=== PATIENT | female | born 1930 | race Caucasian/White ===

== ENCOUNTER 2017-09-11 13:29 | Inpatient (IN) | payer MEDICARE, SELFPAY ==
[~2017-09-11] VITALS: Ht 154.9 cm; Wt 78.3 kg
[~2017-09-11 13:29] MED LIST: ASPI81CH PO; ATORVASTATIN CA40 MG PO; Bactrim Ds Tab1 EACH PO; CEPH500 PO; Diovan Hct 80-1 EACH PO; FLUO10 PO; FLUSAL2505 INH; Flonase 0.05% N16 GM; LISHYD1012 PO; METO25 PO; NEBI5 PO; OMEP20ER PO; OMEP40CA12 PO; OMEPRAZOLE DR 40 MG; OMEPRAZOLE MAGN20 MG PO; OXYACE5T PO; Percocet 5-3251 EACH PO; TIOT18 INH; UBID10 PO; Zofran Odt4 MG SL
[2017-09-11 14:08] LABS: BASOPHILS ABSOLUTE AUTO 0.02 K/mm3 (0.00-0.23); BASOPHILS PERCENT AUTO 0 % (0-2); EOSINOPHILS ABSOLUTE AUTO 0.13 K/mm3 (0.00-0.68); EOSINOPHILS PERCENT AUTO 1 % (0-6); Hematocrit 39.7 % (33.0-51.0); Hemoglobin 13.7 g/dL (11.5-16.0); IMMATURE GRAN ABSOLUTE AUTO 0.03 K/mm3 (0.00-0.10); IMMATURE GRAN PERCENT AUTO 0 % (0-1); LYMPHOCYTES ABSOLUTE AUTO 1.11 K/mm3 (0.84-5.20); LYMPHOCYTES PERCENT AUTO 12 % (21-46); MONOCYTES ABSOLUTE AUTO 0.94 K/mm3 (0.16-1.47); MONOCYTES PERCENT AUTO 11 % (4-13); Mean Corpuscular HGB 31.5 pg (26.0-34.0); Mean Corpuscular HGB Conc 34.5 g/dL (31.5-36.5); Mean Corpuscular Volume 91 fL (80-100); Mean Platelet Volume 10.2 fL (9.1-12.4); NEUTROPHILS ABSOLUTE AUTO 6.76 K/mm3 (1.96-9.15); NEUTROPHILS PERCENT AUTO 75 % (41-73); Platelet Count 201 K/mm3 (150-400); RDW Coefficient Variation 14.9 % (11.7-14.2); RDW Standard Deviation 49.8 fL (35.1-46.3); Red Blood Cell Count 4.35 M/mm3 (3.80-5.20); White Blood Cell Count 8.99 K/mm3 (4.00-11.30)
[2017-09-11] MEDS ORDERED: Diovan Hct 80-1 EACH PO (14:08)
[2017-09-11] MEDS ORDERED: FLUO10 PO (14:08)
[2017-09-11] MEDS ORDERED: VITAMIN B-121000 MCG PO (14:16)
[2017-09-11] MEDS ORDERED: ERGO400 PO (14:17)
[2017-09-11] MEDS ORDERED: FLONASE ALLERG9.9 ML (14:20)
[2017-09-11 14:30] LABS: Albumin, Blood 3.6 g/dL (3.4-5.0); Albumin/Globulin Ratio 0.9 (0.8-1.8); Alk Phos 616 U/L (50-136); Anion Gap 8 mmol/L (6-16); Bilirubin, Total 5.2 mg/dL (0.1-1.0); Blood Urea Nitrogen 16 mg/dL (8-24); Bun/Creatinine Ratio 17.9 (12.0-20.0); CO2, Blood 29 mmol/L (21-32); Chloride, Blood 98 mmol/L (98-108); Globulin, Blood 4.1 g/dL (2.2-4.0); Glomerular Filtration Rate >60 (60-); Glucose, Blood 141 mg/dL (70-99); Potassium, Blood 3.7 mmol/L (3.5-5.5); Sodium, Blood 135 mmol/L (136-145); Total Protein, Blood 7.7 g/dL (6.4-8.2)
[2017-09-11 14:52] LABS: Troponin I <0.015 ng/mL (0.000-0.040)
[2017-09-11 14:58] LABS: Alanine Aminotransfer (ALT/SGP 1406 U/L (12-78); Aspartate Aminotrans (AST/SGOT 1374 U/L (12-37)
[2017-09-11 16:38] LABS: International Normalized Ratio 0.98; Prothrombin Time Results 10.2 Sec (9.7-11.5)
[2017-09-12 06:55] LABS: International Normalized Ratio 1.2; Prothrombin Time Results 12.6 Sec (9.7-11.5)
[2017-09-12 07:35] LABS: Albumin, Blood 2.8 g/dL (3.4-5.0); Albumin/Globulin Ratio 0.8 (0.8-1.8); Bilirubin, Total 7.9 mg/dL (0.1-1.0); Bun/Creatinine Ratio 11.1 (12.0-20.0); Creatinine, Blood 2.07 mg/dL (0.40-1.00); Globulin, Blood 3.5 g/dL (2.2-4.0); Potassium, Blood 3.6 mmol/L (3.5-5.5); Total Protein, Blood 6.3 g/dL (6.4-8.2)
[2017-09-12 08:54] LABS: Hematocrit 35.4 % (33.0-51.0); Hemoglobin 11.7 g/dL (11.5-16.0); Mean Corpuscular HGB 31.6 pg (26.0-34.0); Mean Corpuscular HGB Conc 33.1 g/dL (31.5-36.5); Mean Platelet Volume 10.9 fL (9.1-12.4); Platelet Count 159 K/mm3 (150-400); RDW Coefficient Variation 15.6 % (11.7-14.2); RDW Standard Deviation 53.4 fL (35.1-46.3); White Blood Cell Count 24.43 K/mm3 (4.00-11.30)
[2017-09-12 09:01] LABS: Mean Corpuscular Volume 96 fL (80-100)
[2017-09-14 19:12] LABS: HCV Non Reactive (NR)
[2018-08-14] MEDS ORDERED: VALSARTAN-HCTZ1 EACH PO (15:09)
[2018-08-14] MEDS ORDERED: ATOR40TA PO (15:09)
[2018-08-14] MEDS ORDERED: Fluoxetine HCl10 M1 PO (15:11)
[2018-08-14] MEDS ORDERED: MIRALAX17 GM PO (15:12)
[2018-08-14] MEDS ORDERED: LEVO-T25 MCG PO (15:12)
[2018-08-14] MEDS ORDERED: VOLTAREN100 GM (15:12)
[2018-08-14] MEDS ORDERED: ERGO400 PO (15:13)
[2018-08-14] MEDS ORDERED: HYDR1TAB94 PO (15:13)
[2018-08-14] MEDS ORDERED: LEVFLO500 PO (16:36)
[2018-08-14] MEDS ORDERED: Pyridium100 MG PO (16:36)
== END 2017-09-12 15:07 | disposition short-term general hospital (02) | DRG 393 ==
LOC: ER 13:29 → ERHOLD 16:11 → MEDS 20:26
PROVIDERS: Emergency Medicine; Family Medicine; Internal Medicine
DX: K91.86 Retained cholelithiasis following cholecystectomy (principal); K72.00 Acute and subacute hepatic failure without coma; A41.50 Gram-negative sepsis, unspecified; R65.21 Severe sepsis with septic shock; G93.41 Metabolic encephalopathy; K82.8 Other specified diseases of gallbladder; K21.9 Gastro-esophageal reflux disease without esophagitis; K22.8 Other specified diseases of esophagus; R11.2 Nausea with vomiting, unspecified; T40.2X5A Adverse effect of other opioids, initial encounter; F41.9 Anxiety disorder, unspecified; F32.9 Major depressive disorder, single episode, unspecified; E78.5 Hyperlipidemia, unspecified; E89.2 Postprocedural hypoparathyroidism; Z95.2 Presence of prosthetic heart valve; Y83.6 Removal of other organ (partial) (total) as the cause of abnormal reaction of the patient, or of later complication, without mention of misadventure at the time of the procedure; Z86.14 Personal history of Methicillin resistant Staphylococcus aureus infection; Z87.440 Personal history of urinary (tract) infections; Z87.891 Personal history of nicotine dependence; I12.9 Hypertensive chronic kidney disease with stage 1 through stage 4 chronic kidney disease, or unspecified chronic kidney disease; N18.1 Chronic kidney disease, stage 1
CPT/HCPCS: 36415; 71045; 74181; 74220; 76705; 80053; 80074; 82105; 83605; 83690; 83880; 84484; 85025; 85027; 85610; 85730; 87040; 87077; 87185; 93005; 93010; 96361; 96374; 96375; 99285; C9113; J0696; J1170; J1650; J1885; J2405; J3010; J3370; J7030; J7050; J7120; Q2038

== ENCOUNTER 2020-02-16 14:29 | Inpatient (IN) | payer MEDICARE ==
[~2020-02-16] VITALS: Ht 160 cm; Wt 76.2 kg
[~2020-02-16 14:29] MED LIST changes: +ATOR40TA PO; +DIOVAN HCT 80-1 EACH PO; +ERGO400 PO; +FLONASE ALLERG9.9 ML; +Fluoxetine HCl10 M1 PO; +HYDR1TAB94 PO; +LEVFLO500 PO; +LEVO-T25 MCG PO; +MIRALAX17 GM PO; +Pyridium100 MG PO; +VALSARTAN-HCTZ1 EACH PO; +VITAMIN B-121000 MCG PO; +VOLTAREN100 GM; +Vitamin D2000 UNIT PO
[2020-02-16 15:23] LABS: BASOPHILS ABSOLUTE AUTO 0.04 K/mm3 (0.00-0.23); BASOPHILS PERCENT AUTO 0 % (0-2); EOSINOPHILS PERCENT AUTO 1 % (0-6); Hematocrit 37.8 % (33.0-51.0); Hemoglobin 12.1 g/dL (11.5-16.0); IMMATURE GRAN ABSOLUTE AUTO 0.06 K/mm3 (0.00-0.10); IMMATURE GRAN PERCENT AUTO 0 % (0-1); LYMPHOCYTES ABSOLUTE AUTO 2.55 K/mm3 (0.84-5.20); LYMPHOCYTES PERCENT AUTO 15 % (21-46); MONOCYTES ABSOLUTE AUTO 1.56 K/mm3 (0.16-1.47); MONOCYTES PERCENT AUTO 9 % (4-13); Mean Corpuscular HGB 30.3 pg (26.0-34.0); Mean Corpuscular Volume 95 fL (80-100); Mean Platelet Volume 10.5 fL (9.1-12.4); NEUTROPHILS ABSOLUTE AUTO 12.57 K/mm3 (1.96-9.15); NEUTROPHILS PERCENT AUTO 74 % (41-73); Platelet Count 249 K/mm3 (150-400); RDW Coefficient Variation 14.3 % (11.7-14.2); RDW Standard Deviation 49.3 fL (35.1-46.3); White Blood Cell Count 16.98 K/mm3 (4.00-11.30)
[2020-02-16 15:36] LABS: Alanine Aminotransfer (ALT/SGP 20 U/L (12-78); Albumin, Blood 3.5 g/dL (3.4-5.0); Albumin/Globulin Ratio 0.9 (0.8-1.8); Alk Phos 89 U/L (50-136); Anion Gap 4 mmol/L (6-16); Aspartate Aminotrans (AST/SGOT 19 U/L (12-37); Bilirubin, Total 0.5 mg/dL (0.1-1.0); Blood Urea Nitrogen 32 mg/dL (8-24); Bun/Creatinine Ratio 21.3 (12.0-20.0); CO2, Blood 33 mmol/L (21-32); Calcium, Blood 9.2 mg/dL (8.5-10.1); Chloride, Blood 103 mmol/L (98-108); Globulin, Blood 3.9 g/dL (2.2-4.0); Glomerular Filtration Rate 35 (60-); Glucose, Blood 113 mg/dL (70-99); Potassium, Blood 4.3 mmol/L (3.5-5.5); Sodium, Blood 140 mmol/L (136-145); Total Protein, Blood 7.4 g/dL (6.4-8.2); Troponin I <0.015 ng/mL (0.000-0.040)
[2020-02-16 19:07] LABS: Cholesterol 159 mg/dL (50-200); Triglycerides 244 mg/dL (30-160)
--- NOTE | 2020-02-16 19:31 | NUR ---
TRANSITION OF CARE RECIEVED REPORT FROM [facility], ED @ 1916. ARRIVED TO MEDICAL FLOOR @ 1931. TRANSFER ASSISTANCE NEEDED FROM GURNEY TO BED. ORIENTED TO ROOM AND CALL SYSTEM. BED IN LOWEST POSITION; ALARM ON. CALL LIGHT AND BELONGINGS WITHIN REACH. WCTM.
[2020-02-16] MEDS ORDERED: FLONASE ALLERG9.9 M2 (20:06)
[2020-02-16] MEDS ORDERED: Norco 5-325 Ta1 EACH PO (20:07)
--- NOTE | 2020-02-17 04:01 | NUR ---
SHIFT SUMMARY A/O, ABLE TO MAKE NEEDS KNOWN. [place]. COOPERATIVE WITH CARE. CALLS AND ANSWERS QUESTIONS APPROPRIATELY. C/O PAIN/DISCOMFORT RATED 8-9/10 TO EPIGASTRIC/R SIDE ABDOMEN; MEDICATED PER EMAR. NOTED ADEQUATE RELIEF AFTER EACH ADMINISTRATION. PLACED ON 2L VIA NC IN ED R/T LOW SATURATIONS; O2 SATURATIONS HAVE BEEN >90% WITH EQUAL RISE/FALL. STATES AT HOME HAS HAD A COUGH OCCASIONALLY AND REPORTS HAVING SOB PERIODICALLY. LS CTA. RECIEVED IV FLUIDS PER EMAR; CONTINUES TO RUN LR @ 100 ML/HR WITHOUT COMPLICATIONS. REPORTED WEAKNESS WHEN TX TO BSC. HOWEVER, NO OTHER ACUTE CHANGES OVERNIGHT. APPEARED TO REST OFF/ON. VSS/AFEBRILE. BED REMAINED IN LOWEST POSITION; ALARM ON. CALL LIGHT AND BELONGINGS WITHIN REACH. WCTM. REPORT TO ONCOMING RN.
[2020-02-17 04:58] LABS: BASOPHILS ABSOLUTE AUTO 0.02 K/mm3 (0.00-0.23); BASOPHILS PERCENT AUTO 0 % (0-2); EOSINOPHILS ABSOLUTE AUTO 0.21 K/mm3 (0.00-0.68); EOSINOPHILS PERCENT AUTO 2 % (0-6); Hematocrit 34.6 % (33.0-51.0); Hemoglobin 10.9 g/dL (11.5-16.0); IMMATURE GRAN ABSOLUTE AUTO 0.02 K/mm3 (0.00-0.10); IMMATURE GRAN PERCENT AUTO 0 % (0-1); LYMPHOCYTES ABSOLUTE AUTO 2.18 K/mm3 (0.84-5.20); LYMPHOCYTES PERCENT AUTO 22 % (21-46); MONOCYTES ABSOLUTE AUTO 0.99 K/mm3 (0.16-1.47); MONOCYTES PERCENT AUTO 10 % (4-13); Mean Corpuscular HGB 30.4 pg (26.0-34.0); Mean Corpuscular HGB Conc 31.5 g/dL (31.5-36.5); Mean Corpuscular Volume 96 fL (80-100); Mean Platelet Volume 9.9 fL (9.1-12.4); NEUTROPHILS ABSOLUTE AUTO 6.34 K/mm3 (1.96-9.15); NEUTROPHILS PERCENT AUTO 65 % (41-73); Platelet Count 173 K/mm3 (150-400); RDW Coefficient Variation 14.8 % (11.7-14.2); RDW Standard Deviation 51.9 fL (35.1-46.3); Red Blood Cell Count 3.59 M/mm3 (3.80-5.20); White Blood Cell Count 9.76 K/mm3 (4.00-11.30)
[2020-02-17 05:13] LABS: Source, Urine Catheter
[2020-02-17 05:17] LABS: Bun/Creatinine Ratio 24.8 (12.0-20.0); Calcium, Blood 8.6 mg/dL (8.5-10.1); Creatinine, Blood 1.25 mg/dL (0.40-1.00)
[2020-02-17 05:21] LABS: Appearance, Urine Hazy (Clear); Bilirubin, Urine Neg (Neg); Blood, Urine 2+ (Neg); Color, Urine Yellow (P-Yellow); Glucose Qualitative, Urine Neg (Neg); Ketones, Urine Neg (Neg); Leukocyte Esterase, Urine 3+ (Neg); Nitrite, Urine Neg (Neg); Protein, Urine 1+ (Neg); Urobilinogen, Urine NORM (Normal)
[2020-02-17 05:28] LABS: Bacteria Mod /hpf; Red Blood Cells, Urine 0-2 /hpf (0-2); Squamous Epithelial Cells Rare /hpf (Few); White Blood Cells, Urine TNTC /hpf (0-5)
--- NOTE | 2020-02-17 17:48 | NUR ---
SHIFT SUMMARY PATIENT IS PLEASANT, ALERT AND ORIENTED. PATIENT DID STRUGGLE WITH FLUIDS TODAY. ASKED FOR A SPEECH THERAPY EVAL.
--- NOTE | 2020-02-18 05:56 | NUR ---
SHIFT SUMMARY PT IS AN 89 Y/O FEMALE, ADMITTED FOR PANCREATITIS. SHE IS A&O X 2, 1-2PA TO [facility]. PT WAS MEDICATED TWICE DURING THE NIGHT FOR LUQ PAIN WITH PRN IV DILAUDID. NO COMPLAINTS OF NAUSEA OR SOB. VITAL SIGNS STABLE. PT IS RECEIVING CONTINUOUS LR @ 100 ML/HR. SHE SLEPT WELL THROUGH THE NIGHT. NO OTHER ACUTE CHANGES IN PT CONDITION NOTED. WILL CONTINUE TO MONITOR AND TREAT PER EMAR UNTIL HAND OFF TO DAY SHIFT RN.
[2020-02-18 10:30] LABS: Hematocrit 31.7 % (33.0-51.0); Hemoglobin 9.9 g/dL (11.5-16.0); Mean Corpuscular HGB 30.2 pg (26.0-34.0); Mean Corpuscular HGB Conc 31.2 g/dL (31.5-36.5); Mean Corpuscular Volume 97 fL (80-100); Mean Platelet Volume 10.3 fL (9.1-12.4); Platelet Count 153 K/mm3 (150-400); RDW Coefficient Variation 14.6 % (11.7-14.2); RDW Standard Deviation 51.9 fL (35.1-46.3); Red Blood Cell Count 3.28 M/mm3 (3.80-5.20)
[2020-02-18 10:39] LABS: Albumin, Blood 2.8 g/dL (3.4-5.0); Anion Gap 4 mmol/L (6-16); Blood Urea Nitrogen 26 mg/dL (8-24); Bun/Creatinine Ratio 25.5 (12.0-20.0); CO2, Blood 30 mmol/L (21-32); Calcium, Blood 8.3 mg/dL (8.5-10.1); Chloride, Blood 105 mmol/L (98-108); Creatinine, Blood 1.02 mg/dL (0.40-1.00); Glomerular Filtration Rate 54 (60-); Glucose, Blood 102 mg/dL (70-99); Phosphorus, Blood 3.2 mg/dL (2.5-4.9); Potassium, Blood 4.3 mmol/L (3.5-5.5); Sodium, Blood 139 mmol/L (136-145)
--- NOTE | 2020-02-18 14:00 | NUR ---
PT C/O LIGHT PAIN. REQUEST PAIN MED. REFUSED SUPPOSITORY. SPOKE TO DR CARD. OKAYED CHANGE TO PO. DONE
--- NOTE | 2020-02-18 16:20 | NUR ---
PT REPORTS THINKS SEES OCCATIONAL SPOTS BEFORE EYES. THEN GONE. STATES THOUGHT AIDE WAS DRAWING ON FLOOR THEN NOTICED SHE WAS ACTUALLY STANDING BEFORE HER. REPORTED TO DR CARD. NO ORDERS
--- NOTE | 2020-02-18 18:25 | NUR ---
PT QUITE PLEASANT TODAY. HAS STATED THAT HAS SEEN SOME SPOTS TODAY. AND SOME HALLUCINATIONS, REPORTED TO DR CARD. NO NEW ORDERS. DID NOT GIVE DILAUDID TODAY. PT WAS ABLE TO TAKE TYLENOL AND REPORT GOOD PAIN CONTROL. NO NEW CONCERNS TODAY. BED IN LOW POSITION, CALL LITE IN REACH, BED ALARM ON FOR SAFETY
--- NOTE | 2020-02-18 18:43 | NUR ---
SPOKE TO PT AGAIN RE ALLOWING US TO TURN TO KEEP OFF BOTTOM. REINFORCED CAN CAUSE SKIN BREAKDOWN. REFUSED PILLOW ON EITHER SIDE. OBTAINED EGG CRATE FOR BED. SHE ARGUED, BUT FINALLY ACCEPTED IS SOME BETTER FOR HER. WILL PLACE WHEN SHE GETS UP TO USE BSC.
--- NOTE | 2020-02-19 05:24 | NUR ---
SHIFT SUMMARY HAS BEEN RSETING QUIELTY, WAS AWAKENED AT INTERVALS FOR MEDICATIONS AND ASSESSMENTS. REQUESTED PAIN MED FOR EPIGASTRIC PAIN, DILAUDID GIVEN AND MED WAS EFFECTIVE. CHEERFUL AFFECT POST ENGINEERING JOB TITLES. IVF INFUSING. CALL LIGHT IN REACH
[2020-02-19 06:02] LABS: Hematocrit 31.9 % (33.0-51.0); Mean Corpuscular HGB 30.3 pg (26.0-34.0); Mean Corpuscular HGB Conc 31.3 g/dL (31.5-36.5); Mean Corpuscular Volume 97 fL (80-100); Mean Platelet Volume 10.6 fL (9.1-12.4); Platelet Count 140 K/mm3 (150-400); RDW Coefficient Variation 14.1 % (11.7-14.2); RDW Standard Deviation 50.1 fL (35.1-46.3); White Blood Cell Count 8.81 K/mm3 (4.00-11.30)
[2020-02-19 06:28] LABS: Albumin, Blood 2.7 g/dL (3.4-5.0); Albumin/Globulin Ratio 0.8 (0.8-1.8); Bilirubin, Direct 0.3 mg/dL (0.0-0.3); Bilirubin, Indirect 0.6 mg/dL (0.1-0.7); Bilirubin, Total 0.9 mg/dL (0.1-1.0); Bun/Creatinine Ratio 20.2 (12.0-20.0); Calcium, Blood 8.5 mg/dL (8.5-10.1); Creatinine, Blood 1.04 mg/dL (0.40-1.00); Globulin, Blood 3.4 g/dL (2.2-4.0); Potassium, Blood 4.1 mmol/L (3.5-5.5); Total Protein, Blood 6.1 g/dL (6.4-8.2)
--- NOTE | 2020-02-19 13:35 | NUR ---
patient told speech therapy that she wants to be put to sleep permanently. she says she is unable to swallow and there is no more ability to swallow.
--- NOTE | 2020-02-19 17:21 | NUR ---
SHIFT SUMMARY PATIENT IS PLEASANTLY CONFUSED. SHE HAS HAD WEIRD STORIES ALL DAY AND EVEN SAW THE AID WALKING ON THE CEILING. PATIENT IS CURRENTLY STRICT NPO UNTIL SHE CAN BE SEEN A SECOND TIME BY SPEECH THERAPY. SHE NEEDS REEVALUATION BY SPEECH THERAPY TOMORROW TO SEE WHAT IS SAFE AND WHAT IS NOT. CURRENTLY PATIENT IS STRUGGLING TO SWALLOW AND SAYS SHE THINKS SHE IS DONE WITH LIFE THEN THE NEXT MINUTE SHE IS HAPPY A CLAM. CURRENT CONCERNS INCLUDE PATIENTS MENTATION AND HER ABILITY TO SWALLOW.
--- NOTE | 2020-02-20 01:09 | NUR ---
PT WAS AWAKE EARLIER, PULLED OUT IV AND VOICED SEVER PAIN IN HIPS/COCCYX AREA. IV PLACED. FENTANYL ADMINISTERED PER MD ORDERS - SEE MAR FOR DETAILS. CURRENTLY RESTING QUIETLY - NO NOTED ACUTE DISTRESS AT THIS TIME. CALL LIGHT IN REACH.
--- NOTE | 2020-02-20 04:40 | NUR ---
SHIFT SUMMARY AWAKE EARLIER, VOICED SEVERE PAIN OF LOWER ABD AND COCCYX AREA. RECEIVED FENTANYL IV PER MD ORDERS - RESTING QUIELTY WITH NO NOTED DISTRESS OF THIS WRITING. CALL LIGHT IN REACH.
[2020-02-20 06:35] LABS: Albumin, Blood 2.6 g/dL (3.4-5.0); Anion Gap 9 mmol/L (6-16); Blood Urea Nitrogen 16 mg/dL (8-24); Bun/Creatinine Ratio 17.4 (12.0-20.0); CO2, Blood 26 mmol/L (21-32); Calcium, Blood 8.1 mg/dL (8.5-10.1); Chloride, Blood 107 mmol/L (98-108); Creatinine, Blood 0.92 mg/dL (0.40-1.00); Glomerular Filtration Rate >60 (60-); Glucose, Blood 90 mg/dL (70-99); Phosphorus, Blood 3.2 mg/dL (2.5-4.9); Sodium, Blood 142 mmol/L (136-145)
--- NOTE | 2020-02-20 10:24 | NUR ---
CLINIMIX HELD FOR NOW PER DR CARD
--- NOTE | 2020-02-20 17:01 | NUR ---
Initial spiritual care note: I met with Nidia and her son, Wolf, at bedside. Nidia was talkative and slightly confused. Both she and her son often told overlapping stories at the same time. They seem to have a close, loving relationship. Wolf tells me that Nidia was on hospice in [place] 8 years ago "because they could not think of anything else to do for her pain." He brought he to live with him and "she has done pretty well." I facilitated story-telling and provided gentle guidence and executive assistant to general counsel. Affirmed obvious love and assured them of excellent care/attention. Nidia stated she "felt" her body getting ready to "go home" to God. She is unafraid and says she is "ready." Wolf was clearly disturbed by this admission and denied she was lucid enough to determine her own path. Apparently, pain control has been difficult for Nidia. I will remain available.
--- NOTE | 2020-02-21 03:48 | NUR ---
SUMMARY PT HAD SOME PAIN NOTED DURING SHIFT. PT RESPONDED WELL TO TX. PT HAD SOME INCREASED SOB THIS AM AND IS BEING TX BY RT. WCTM. PT CALL LIGHT IN REACH.
[2020-02-21 05:12] LABS: Hematocrit 29.2 % (33.0-51.0); Hemoglobin 9.4 g/dL (11.5-16.0); Mean Corpuscular HGB 30.3 pg (26.0-34.0); Mean Corpuscular HGB Conc 32.2 g/dL (31.5-36.5); Mean Platelet Volume 10.5 fL (9.1-12.4); Platelet Count 172 K/mm3 (150-400); RDW Standard Deviation 47.6 fL (35.1-46.3); White Blood Cell Count 8.48 K/mm3 (4.00-11.30)
[2020-02-21 05:16] LABS: Mean Corpuscular Volume 94 fL (80-100)
[2020-02-21 05:38] LABS: Albumin, Blood 2.4 g/dL (3.4-5.0); Anion Gap 3 mmol/L (6-16); Blood Urea Nitrogen 13 mg/dL (8-24); Bun/Creatinine Ratio 15.7 (12.0-20.0); CO2, Blood 32 mmol/L (21-32); Calcium, Blood 8.4 mg/dL (8.5-10.1); Chloride, Blood 106 mmol/L (98-108); Creatinine, Blood 0.83 mg/dL (0.40-1.00); Glomerular Filtration Rate >60 (60-); Glucose, Blood 136 mg/dL (70-99); Phosphorus, Blood 2.4 mg/dL (2.5-4.9); Potassium, Blood 3.6 mmol/L (3.5-5.5); Sodium, Blood 141 mmol/L (136-145)
--- NOTE | 2020-02-21 16:30 | NUR ---
Follow-up spiritual care note: Nidia was alone in room and welcoming of companionship/conversation. Talking appears to make her SOB, and she needed to stop talking every few sentances to catch her breath. Nidia told me again today that she knows she is nearing the end of her life, and is, in fact, "looking forward to it." Because of her SOB, visit kept short. I provided theraputic listening and prayer. I will remain available.
--- NOTE | 2020-02-21 17:24 | NUR ---
PT REMAINS SOB WITH EXERTION. LUNG SOUNDS WHEEZY. PT HAS BEEN TITRATED DOWN TO 2 L O2 WHILE MAINTAING 95%. PT IS A ONE ASSIST TO BSC AND PERFERS TO LAY FLAT STATING IT FEELS BETTER ON HER STOMACH. PAIN MEDS GIVEN PER REQUEST FOR CHRONIC BACK PAIN. CALL LIGHT WITHIN REACH.
--- NOTE | 2020-02-21 17:59 | NUR ---
Pt resting in bed upon arrival. Pt reports 6/10 pain in her abdomen that is improving. Pt reports recently receiving pain medications. Engaged in therapeutic discussion regarding POLST and Code Status. Pt's current code status is DNR. POLST on file is No CPR and Full Treatment. Confirmed Pt's DNR wishes and educated on life sustaining measures. Pt wishes to complete a new POLST. Educated on each section to complete and each option to choose from. Assisted Pt in completing POLST. Pt completes POLST with wishes as DNR and Limited Treatment. Pt signs POLST. Assisted Pt to BSC per her request and assisted her back to bed. Pt reports no other concerns at this time. Pt expresses appreciation of visit. Spoke with Bedside RN Santa and discussed case. POLST hanging on Pt's whiteboard in her room. Will obtain copy of POLST for medical records upon hospitalist signature. Palliative Care will remain available.
[2020-02-22 06:09] LABS: Albumin, Blood 2.5 g/dL (3.4-5.0); Anion Gap 4 mmol/L (6-16); Blood Urea Nitrogen 11 mg/dL (8-24); Bun/Creatinine Ratio 11.6 (12.0-20.0); CO2, Blood 35 mmol/L (21-32); Calcium, Blood 8.2 mg/dL (8.5-10.1); Chloride, Blood 101 mmol/L (98-108); Creatinine, Blood 0.95 mg/dL (0.40-1.00); Glomerular Filtration Rate 59 (60-); Glucose, Blood 113 mg/dL (70-99); Phosphorus, Blood 2.3 mg/dL (2.5-4.9); Potassium, Blood 3.2 mmol/L (3.5-5.5); Sodium, Blood 140 mmol/L (136-145)
[2020-02-22] MEDS ORDERED: REFRESH CELLUV1 EACH BOTHEYES (09:35)
[2020-02-22] MEDS ORDERED: TUMS500 MG PO (09:35)
[2020-02-22] MEDS ORDERED: ACET325 PO (09:35)
[2020-02-22] MEDS ORDERED: MIRALAX17 GM PO (09:36)
[2020-02-22] MEDS ORDERED: SODIUM PHOSPHA PO (09:37)
[2020-02-22] MEDS ORDERED: SULTRIDS PO (09:37)
[2020-02-22] MEDS ORDERED: ALBU2.5V5 INH (09:38)
[2020-02-22] MEDS ORDERED: PROBIOTIC1 EA10 PO (09:38)
[2020-02-22] MEDS ORDERED: FLUTICASONE-SA1 EAC1 INH (09:38)
[2020-02-22] MEDS ORDERED: PANT40 PO (09:39)
--- NOTE | 2020-02-22 15:44 | NUR ---
PATIENT D/C'D TO [facility] VIA WC TRANSPORT. REPORTS CALLED TO [facility]. PACKET GIVEN TO IT SALES REPRESENTATIVE WITH HARD SCRIPT FOR [place] IN [place]. PATIENT DENIES ANY FURTHER QUESTIONS OR CONCERNS.
== END 2020-02-22 15:40 | DRG 438 ==
LOC: ER 14:29 → MEDS 19:35 → ENPENDDIS 02-22 10:30 → MEDS 02-22 15:40
PROVIDERS: Internal Medicine; Nurse Practitioner Acute Care; Student in an Organized Health Care Education/Training Program; ADMIT Internal Medicine
DX: K85.90 Acute pancreatitis without necrosis or infection, unspecified (principal); J96.01 Acute respiratory failure with hypoxia; N13.2 Hydronephrosis with renal and ureteral calculous obstruction; N17.9 Acute kidney failure, unspecified; R65.10 Systemic inflammatory response syndrome (SIRS) of non-infectious origin without acute organ dysfunction; K21.9 Gastro-esophageal reflux disease without esophagitis; E78.5 Hyperlipidemia, unspecified; Z87.891 Personal history of nicotine dependence; N18.3 Chronic kidney disease, stage 3 (moderate); I12.9 Hypertensive chronic kidney disease with stage 1 through stage 4 chronic kidney disease, or unspecified chronic kidney disease; R13.10 Dysphagia, unspecified; K59.00 Constipation, unspecified; D21.5 Benign neoplasm of connective and other soft tissue of pelvis; K29.80 Duodenitis without bleeding
CPT/HCPCS: 36415; 74176; 74177; 80048; 80053; 80069; 81001; 82248; 82465; 83690; 84100; 84478; 84484; 85025; 85027; 87077; 87086; 87186; 92526; 92610; 93005; 93010; 94640; 94760; 96361; 96365; 96366; 96367; 96375; 96376; 97110; 97162; 97166; 97530; 97535; 99285-25; A9270; A9270-GY; C9113; G0378; J0744; J1170; J1940; J2270; J2405; J2543; J3010; J3370; J7030; J7050; J7120; Q9967

== ENCOUNTER 2020-09-28 07:54 | Emergency (ER) | payer MEDICARE, SELFPAY ==
[~2020-09-28] VITALS: Ht 167.6 cm; Wt 81.7 kg
[~2020-09-28 07:54] MED LIST changes: +ACET325 PO; +ALBU2.5V5 INH; +FLONASE ALLERG9.9 M2; +FLUTICASONE-SA1 EAC1 INH; +Norco 5-325 Ta1 EACH PO; +PANT40 PO; +PROBIOTIC1 EA10 PO; +REFRESH CELLUV1 EACH BOTHEYES; +SODIUM PHOSPHA PO; +SULTRIDS PO; +TUMS500 MG PO
[2020-09-28 08:31] LABS: BASOPHILS ABSOLUTE AUTO 0.06 K/mm3 (0.00-0.23); BASOPHILS PERCENT AUTO 1 % (0-2); EOSINOPHILS ABSOLUTE AUTO 0.45 K/mm3 (0.00-0.68); EOSINOPHILS PERCENT AUTO 4 % (0-6); Hematocrit 40.4 % (33.0-51.0); IMMATURE GRAN ABSOLUTE AUTO 0.06 K/mm3 (0.00-0.10); IMMATURE GRAN PERCENT AUTO 1 % (0-1); LYMPHOCYTES ABSOLUTE AUTO 3.06 K/mm3 (0.84-5.20); LYMPHOCYTES PERCENT AUTO 25 % (21-46); MONOCYTES ABSOLUTE AUTO 0.99 K/mm3 (0.16-1.47); MONOCYTES PERCENT AUTO 8 % (4-13); Mean Corpuscular HGB Conc 32.2 g/dL (31.5-36.5); Mean Corpuscular Volume 90 fL (80-100); Mean Platelet Volume 10.4 fL (9.1-12.4); NEUTROPHILS ABSOLUTE AUTO 7.77 K/mm3 (1.96-9.15); NEUTROPHILS PERCENT AUTO 63 % (41-73); Platelet Count 296 K/mm3 (150-400); RDW Coefficient Variation 14.2 % (11.7-14.2); RDW Standard Deviation 45.9 fL (35.1-46.3); Red Blood Cell Count 4.49 M/mm3 (3.80-5.20); White Blood Cell Count 12.39 K/mm3 (4.00-11.30)
[2020-09-28 08:35] LABS: Alanine Aminotransfer (ALT/SGP 13 U/L (12-78); Albumin, Blood 3.4 g/dL (3.4-5.0); Albumin/Globulin Ratio 0.8 (0.8-1.8); Alk Phos 108 U/L (50-136); Anion Gap 4 mmol/L (6-16); Aspartate Aminotrans (AST/SGOT 13 U/L (12-37); Bilirubin, Total 0.5 mg/dL (0.1-1.0); Blood Urea Nitrogen 21 mg/dL (8-24); Bun/Creatinine Ratio 25.5 (12.0-20.0); CO2, Blood 30 mmol/L (21-32); Calcium, Blood 9.4 mg/dL (8.5-10.1); Chloride, Blood 109 mmol/L (98-108); Creatinine, Blood 0.82 mg/dL (0.40-1.00); Globulin, Blood 4.4 g/dL (2.2-4.0); Glomerular Filtration Rate >60 (60-); Glucose, Blood 146 mg/dL (70-99); Sodium, Blood 143 mmol/L (136-145); Total Protein, Blood 7.8 g/dL (6.4-8.2)
[2020-09-28 09:09] LABS: International Normalized Ratio 0.96; Prothrombin Time Results 10.3 Sec (9.7-11.5)
[2020-09-28] MEDS ORDERED: AMOCLA875 PO (13:21)
== END 2020-09-28 13:41 | disposition home or self-care (01) ==
LOC: ER 07:54
PROVIDERS: Emergency Medicine
DX: K57.92 Diverticulitis of intestine, part unspecified, without perforation or abscess without bleeding (principal); I69.320 Aphasia following cerebral infarction; I10 Essential (primary) hypertension; Z87.442 Personal history of urinary calculi; Z87.891 Personal history of nicotine dependence
CPT/HCPCS: 36415; 74177; 80053; 85025; 85610; 85730; 86850; 86900; 86901; 93005; 93010; 99285-25; A9270; Q9967

== ENCOUNTER 2021-03-02 08:58 | Inpatient (IN) | payer MEDICARE ==
[~2021-03-02] VITALS: Ht 172.7 cm; Wt 67.5 kg
[~2021-03-02 08:58] MED LIST changes: +AMOCLA875 PO
[2021-03-02] MEDS ORDERED: IBUP200 PO (09:56)
[2021-03-02] MEDS ORDERED: Percocet 5-3251 EACH (09:57)
[2021-03-02 10:04] LABS: BASOPHILS ABSOLUTE AUTO 0.04 K/mm3 (0.00-0.23); BASOPHILS PERCENT AUTO 0 % (0-2); EOSINOPHILS ABSOLUTE AUTO 0.05 K/mm3 (0.00-0.68); EOSINOPHILS PERCENT AUTO 0 % (0-6); Hemoglobin 12.5 g/dL (11.5-16.0); IMMATURE GRAN ABSOLUTE AUTO 0.05 K/mm3 (0.00-0.10); IMMATURE GRAN PERCENT AUTO 0 % (0-1); LYMPHOCYTES ABSOLUTE AUTO 1.81 K/mm3 (0.84-5.20); LYMPHOCYTES PERCENT AUTO 14 % (21-46); MONOCYTES ABSOLUTE AUTO 1.04 K/mm3 (0.16-1.47); MONOCYTES PERCENT AUTO 8 % (4-13); Mean Corpuscular HGB 28.8 pg (26.0-34.0); Mean Corpuscular HGB Conc 31.3 g/dL (31.5-36.5); Mean Corpuscular Volume 92 fL (80-100); Mean Platelet Volume 10.2 fL (9.1-12.4); NEUTROPHILS ABSOLUTE AUTO 9.62 K/mm3 (1.96-9.15); NEUTROPHILS PERCENT AUTO 76 % (41-73); Platelet Count 248 K/mm3 (150-400); RDW Coefficient Variation 15.1 % (11.7-14.2); RDW Standard Deviation 50.5 fL (35.1-46.3); Red Blood Cell Count 4.34 M/mm3 (3.80-5.20); White Blood Cell Count 12.61 K/mm3 (4.00-11.30)
[2021-03-02 10:19] LABS: Albumin, Blood 3.5 g/dL (3.4-5.0); Albumin/Globulin Ratio 0.8 (0.8-1.8); Bilirubin, Total 0.8 mg/dL (0.1-1.0); Bun/Creatinine Ratio 20.6 (12.0-20.0); Calcium, Blood 9.4 mg/dL (8.5-10.1); Creatinine, Blood 1.02 mg/dL (0.40-1.00); Globulin, Blood 4.4 g/dL (2.2-4.0); Total Protein, Blood 7.9 g/dL (6.4-8.2)
[2021-03-02 12:52] LABS: Source, Urine Clean Catch
[2021-03-02 12:58] LABS: Bilirubin, Urine Neg (Neg); Blood, Urine 4+ (Neg); Glucose Qualitative, Urine Neg (Neg); Ketones, Urine Neg (Neg); Leukocyte Esterase, Urine 3+ (Neg); Nitrite, Urine Pos (Neg); Protein, Urine 3+ (Neg); Urobilinogen, Urine NORM (Normal)
[2021-03-02 13:06] LABS: Appearance, Urine Cloudy (Clear); Color, Urine Yellow (P-Yellow)
[2021-03-02 13:08] LABS: White Blood Cells, Urine TNTC /hpf (0-5)
[2021-03-02 13:10] LABS: Bacteria Mod /hpf; Squamous Epithelial Cells Not Seen /hpf (Few)
--- NOTE | 2021-03-02 15:46 | NUR ---
PT CAME IN FOR INTRACTABLE HEADACHE THAT IS 10/10. PT FELL AT HOME AND DID NOT HIT HER HEAD ACCORDING TO PT SON WHO BROUGHT HER TO THE ED. PT IS AN 89/F WHO IS CONFUSED AT BASELINE. 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 PT IS DNR AND CAME IN WITH HIGH BP. PT POINTING TO HER LEFT EAR AND STATED HURT. SHE IS RA AT BASELINE, AND HAD TO BE PLACED ON OXYMIZER OF 5L ON ED BECAUSE SHE DESATS. PT IS NOW ON 2L OF O2 NC; BUT CONTINUOSLY WILL TAKE OFF OXYGEN AND STATED SHE DOES NOT WANT IT. SATS ABOVE 90S ON RA. PT FWW AT BASELINE PER ED RN, BUT PHYSICAL THERAPY CAME BY TO EVALUATE HER AND SHE IS NOT ABLE TO PARTICIPATE. PT IS STRUGGLING WITH COMMUNICATION EVEN WITH WHITE BOARD. PT HAD CT AND NO CHANGES FOUND FROM THE PREVIOUS CVA. SKIN INTACT, AND WEARING DEPENDS. PT STATED THAT THE SON WENT HOME. PMH OF PANCREATITIS, COPD, DARLENE, AORIC STENOSIS, HTN, AND VALVE REPLACEMENT. PT IS ON TELE TACHY OF 100 WITH BB PER CHIEF LIFESTYLE OFFICER. PT DENIES CP. PT WOULD SOMETIMES SCREAMS WHEN BEING REPOSITION. PT GIVEN HYDRALAZINE PER DR TRIVEDI AND ORETIC PER EMAR; WILL RECHECK BP. BED ALARM IS ON AND CALL LIGHT WITHIN REACH
--- NOTE | 2021-03-02 18:09 | NUR ---
CALLED DR FOR CONSISTENT HIGH BLOOD PRESSURE; ADDED AMLODIPINE AND RECHECK IN AN HR, WILL NOTIFY THE NIGHT RN;PT MEDICATED FOR PAIN/HEADACHE
[2021-03-03 05:29] LABS: BASOPHILS ABSOLUTE AUTO 0.02 K/mm3 (0.00-0.23); BASOPHILS PERCENT AUTO 0 % (0-2); EOSINOPHILS PERCENT AUTO 0 % (0-6); Hematocrit 41.5 % (33.0-51.0); IMMATURE GRAN ABSOLUTE AUTO 0.05 K/mm3 (0.00-0.10); IMMATURE GRAN PERCENT AUTO 1 % (0-1); LYMPHOCYTES PERCENT AUTO 9 % (21-46); MONOCYTES ABSOLUTE AUTO 0.07 K/mm3 (0.16-1.47); MONOCYTES PERCENT AUTO 1 % (4-13); Mean Corpuscular HGB 28.6 pg (26.0-34.0); Mean Corpuscular HGB Conc 31.3 g/dL (31.5-36.5); Mean Corpuscular Volume 91 fL (80-100); Mean Platelet Volume 10.6 fL (9.1-12.4); NEUTROPHILS ABSOLUTE AUTO 9.41 K/mm3 (1.96-9.15); NEUTROPHILS PERCENT AUTO 90 % (41-73); Platelet Count 264 K/mm3 (150-400); RDW Coefficient Variation 15.4 % (11.7-14.2); Red Blood Cell Count 4.54 M/mm3 (3.80-5.20); White Blood Cell Count 10.45 K/mm3 (4.00-11.30)
[2021-03-03 05:52] LABS: Bun/Creatinine Ratio 29.8 (12.0-20.0); Calcium, Blood 8.8 mg/dL (8.5-10.1); Creatinine, Blood 0.97 mg/dL (0.40-1.00); Potassium, Blood 4.5 mmol/L (3.5-5.5)
--- NOTE | 2021-03-03 06:12 | NUR ---
SHIFT SUMMARY PT IS AN 89 Y/O FEMALE, ADMITTED FOR AN INTRACTABLE KIRKLAND. SHE IS A&O X SELF ONLY, VERY [place]. INCONTINENT, ON BEDREST. PT C/O A KIRKLAND WHENEVER AWAKE, BUT FALLS ASLEEP QUICKLY. NO C/O NAUSEA OR SOB. VITAL SIGNS STABLE. PT SLEPT WELL THROUGH THE NIGHT. NO ACUTE CHANGES IN PT CONDITION NOTED. WILL CONTINUE TO MONITOR AND TREAT PER EMAR UNTIL HAND OFF TO DAY SHIFT RN.
--- NOTE | 2021-03-03 18:34 | NUR ---
SHIFT SUMMARY- PT SLEPT MOST OF THIS SHIFT. SHE IS CONFUSED AND [place]. SHE HAS DIFFICULTY FINDING THE RIGHT WORDS. SHE IS RECIEVING PRN PAIN MEDICATION FOR HEADACHE. DR. DOMINGUEZ SPOKE WITH HER SON ON THE PHONE THIS SHIFT. HER APPETITE IS POOR. SHE IS INC. HER BED IS IN THE LOW POSITOIN AND CALL LIGHT IS WITIN REACH, BED ALARM IS ON.
--- NOTE | 2021-03-04 04:44 | NUR ---
SHIFT SUMMARY- PT. A&O TO SELF WITH CONFUSION AND VERY [place]. SLEPT MOST OF THE NIGHT, OCCASIONALLY IMPULSIVE. C/O KIRKLAND LAST NIGHT, MEDICATED WITH TYLENOL. APPEARED TO HAVE GOOD RELIEF. INCONT, ATTENDS IN PLACE. NO ACUTE CHANGES TO CONDITION, VSS. CALL LIGHT WITHIN REACH, SIDE RAILS UPX2, AND BED ALARM ON FOR SAFETY. WILL CONT TO MONITOR.
--- NOTE | 2021-03-04 14:15 | NUR ---
PT TO IMAGING FOR CT OF SPINE, RECEIVED CALL FROM DEPARTMENT OF MATHEMATICS CHAIR, PT HAS AN UNSTABLE C SPINE FX. CALL PLACED TO [facility] FOR HARD C COLLAR. PT RETURNED TO ROOM VIA GURNEY WITH HEAD RESTRAINED WITH TOWELS AND TAPE. HARD PLASTIC C COLLAR NOT SIZED FOR PT AND DID NOT FIT WELL AND WERE PAINFUL TO WEAR FOR HER. SHE STRUGGLED CONSTANTLY AND TRIED TO REMOVE. SOFT C COLLAR PLACED AND PT IS TOLERATING WELL. WILL MONITOR
--- NOTE | 2021-03-04 16:47 | NUR ---
Spiritual care note: Mrs. Brown has trouble speaking due to past stroke. She is also very [place], making meaningful conversation impossible. She complained of a headache and held her head. I could not get her to understand me. RN aware of pt's headache. No family present at time of visit. I will remain available to pt and family.
--- NOTE | 2021-03-04 21:05 | NUR ---
PHYSICIAN COMMUNICATION CONTACTED PIPED POCKET MACHINE OPERATOR PHYSICIAN, DR NAZARIO, TO NOTIFY HER THAT THE PATIENT IS CONFUSED, HAS AN UNSTABLE C-SPINE FX, TOOK HER NECK BRACE OFF AND WON'T LET IT BE PUT BACK ON. DR NAZARIO ORDERED O.5 MG IV ATIVAN NOW.
--- NOTE | 2021-03-05 05:58 | NUR ---
SHIFT SUMMARY PATIENT ALERT AND ORIENTED TO SELF. PATIENT HAS HAD NO COMPLAINTS OF PAIN OR SHORTNESS OF BREATH OVERNIGHT. SOFT NECK BRACE IN PLACE TO STABILIZE C-SPINE NECK FX. PATIENT SLEPT WELL OVERNIGHT. NO ACUTE ISSUES NOTED. IV PATENT AND FLUSHED. BED IN LOWEST POSITION WITH WHEELS LOCKED AND ALARM ON. CALL LIGHT WITHIN REACH. REPORT GIVEN TO ONCOMING RN.
--- NOTE | 2021-03-05 19:19 | NUR ---
NO ACUTE CHANGES THIS SHIFT. SHE HAS BEEN PLEASANT AND COOPERATIVE WITH CARE. EXPRESSIVE APHASIA REMAINS, BUT SHE IS ABLE TO MAKE HER NEEDS KNOWN. CALL VALENTINE IN REACH BUT PT DOES NOT USE. BED ALARM ARMED. WILL CONTINUE TO MONITOR AND REPORT TO ONCOMING RN
--- NOTE | 2021-03-06 06:51 | NUR ---
SHIFT SUMMARY ALERT. EXPRESSIVE APHASIA. DOESNT ALWAYS RESPOND TO QUESTIONS & USES BODY LANGUAGE/HAND SIGNALS. PLEASENT & COOPERATIVE. VSS. REPORTS NECK PAIN & "PAIN ALLOVER" MEDICATED c SCHEDULED TYLENOL & 1X c ULTRAM. REPORTED FEELING NAUSEATED, MEDICATED 1X c ZOFRAN. NO BM SINCE ADMIT, STARTED BOWEL CARE-STILL NO BM. AWAITING DC PLAN. CALL LIGHT & BED ALARM IN PLACE.
--- NOTE | 2021-03-06 18:41 | NUR ---
PT ABLE TO AMBULATE TO [facility] WITH STANDBY AND GUIDANCE. SHE REMAINS CONFUSED BUT IS ABLE TO COMMUNICATE . SHE IS TOLERATING THE C COLLAR BUT COMPLAINS OF PAIN, MEDICATED PER EMAR. NO ACUTE CHANGES.
--- NOTE | 2021-03-07 06:18 | NUR ---
SHIFT SUMMARY- PT. A&O TO SELF, [place]. C-COLLAR IN PLACE, PT. C/O KIRKLAND LAST NIGHT. SCHEDULED TYLENOL GIVEN PER EMAR WITH GOOD EFFECT. SLEPT T/O THE NIGHT, NO APPARENT DISTRESS NOTED. RESTING QUIETLY AT THIS TIME, VSS. CALL LIGHT WITHIN REACH, SIDE RAILS UPX3, AND BED ALARM ON. WILL CONT TO MONITOR.
[2021-03-07 12:24] LABS: SARS-Cov-2 (COVID-19) PCR, MMC NEGATIVE (NEGATIVE)
[2021-03-07] MEDS ORDERED: AMLO5 PO (15:09)
[2021-03-07] MEDS ORDERED: ACET325 PO (15:09)
[2021-03-07] MEDS ORDERED: HYDCHL25 PO (15:10)
[2021-03-07] MEDS ORDERED: CIPR500 PO (15:10)
--- NOTE | 2021-03-07 17:24 | NUR ---
PATIENT ORIENTED TO SELF ONLY, SEVERE APHASIA AND VERY [place]. CONTINUES TO HAVE A HEADACHE, BUT CONTROLLED WITH TRAMADOL AND SCHEDULED TYLENOL. C-COLLAR IN PLACE THROUGOUT THE DAY. VERY UNSTEADY AT SIDE OF BED WHEN WORKING WITH PT. BOWEL CARE STARTED THIS AM. DC TO [facility] ON HOLD UNTIL PATIENT HAS A BM. INCONTINENT OF URINE, WEARING ATTENDS. FALL PRECAUTIONS IN PLACE.
--- NOTE | 2021-03-08 05:48 | NUR ---
SHIFT SUMMARY PT IS AN 89 Y/O FEMALE, ADMITTED FOR INTRACTABLE KIRKLAND. SHE IS A&O X SELF, VERY [place]. 1PA TO THE BATHROOM, CONT/INCONTINENT. SHE WAS MEDICATED FOR HER KIRKLAND WITH SCHEDULED TYLENOL AT 0000, BUT REFUSED HER 0600 DOSE. PT C/O ABD CRAMPS AND GAS, BUT NO BM NOTED. NO C/O SOB. VITAL SIGNS STABLE. NO ACUTE CHANGES IN PT CONDITION NOTED. WILL CONTINUE TO MONITOR AND TREAT PER EMAR UNTIL HAND OFF TO DAY SHIFT RN.
--- NOTE | 2021-03-08 13:10 | NUR ---
PATIENT D/C'D TO [facility] VIA GURNEY TRANSPORT. REPORT CALLED TO JO NURSE AT [facility]. PACKET GIVEN TO JET DYEING MACHINE TENDER AND SON PEBBLES NOTIFIED OF TRANSFER. BELONGINGS SENT WITH PATIENT.
== END 2021-03-08 13:15 | DRG 552 ==
LOC: ER 08:58 → MEDS 08:59 → ENPENDDIS 03-07 17:43 → MEDS 03-08 13:15
PROVIDERS: Emergency Medicine; Family Medicine; Hospitalist; ADMIT Internal Medicine
DX: S12.120A Other displaced dens fracture, initial encounter for closed fracture (principal); J96.11 Chronic respiratory failure with hypoxia; N39.0 Urinary tract infection, site not specified; N17.9 Acute kidney failure, unspecified; Z20.822 Contact with and (suspected) exposure to COVID-19; B96.5 Pseudomonas (aeruginosa) (mallei) (pseudomallei) as the cause of diseases classified elsewhere; J44.9 Chronic obstructive pulmonary disease, unspecified; E86.0 Dehydration; I10 Essential (primary) hypertension; Z66 Do not resuscitate; K21.9 Gastro-esophageal reflux disease without esophagitis; F41.9 Anxiety disorder, unspecified; F32.9 Major depressive disorder, single episode, unspecified; E78.5 Hyperlipidemia, unspecified; Z90.49 Acquired absence of other specified parts of digestive tract; Z90.710 Acquired absence of both cervix and uterus; I69.320 Aphasia following cerebral infarction; Z95.2 Presence of prosthetic heart valve; Z87.442 Personal history of urinary calculi; Z90.89 Acquired absence of other organs; Z98.890 Other specified postprocedural states; Z87.891 Personal history of nicotine dependence; Z98.49 Cataract extraction status, unspecified eye; W19.XXXA Unspecified fall, initial encounter
CPT/HCPCS: 36415; 70450; 72125; 80048; 80053; 81001; 85025; 85651; 87077; 87086; 87186; 92610; 93005; 93010; 94762; 96365; 96367; 96372; 96375; 96376; 97110; 97161; 97530; 99285-25; A9270; G0378; J0360; J0696; J0713; J1170; J1650; J2060; J2405; J2930; J3010; J7030; J7050; U0004

== ENCOUNTER 2021-05-15 23:47 | Inpatient (IN) | payer MEDICARE ==
[~2021-05-15] VITALS: Ht 167.6 cm; Wt 66.8 kg
[~2021-05-15 23:47] MED LIST changes: +AMLO5 PO; +CIPR500 PO; +HYDCHL25 PO; +IBUP200 PO; +Percocet 5-3251 EACH
[2021-05-16 00:05] LABS: BASOPHILS ABSOLUTE AUTO 0.06 K/mm3 (0.00-0.23); BASOPHILS PERCENT AUTO 1 % (0-2); EOSINOPHILS PERCENT AUTO 2 % (0-6); Hematocrit 36.4 % (33.0-51.0); Hemoglobin 11.7 g/dL (11.5-16.0); IMMATURE GRAN ABSOLUTE AUTO 0.02 K/mm3 (0.00-0.10); IMMATURE GRAN PERCENT AUTO 0 % (0-1); LYMPHOCYTES ABSOLUTE AUTO 2.59 K/mm3 (0.84-5.20); LYMPHOCYTES PERCENT AUTO 25 % (21-46); MONOCYTES ABSOLUTE AUTO 1.15 K/mm3 (0.16-1.47); MONOCYTES PERCENT AUTO 11 % (4-13); Mean Corpuscular HGB 29.2 pg (26.0-34.0); Mean Corpuscular HGB Conc 32.1 g/dL (31.5-36.5); Mean Corpuscular Volume 91 fL (80-100); Mean Platelet Volume 10.6 fL (9.1-12.4); NEUTROPHILS ABSOLUTE AUTO 6.49 K/mm3 (1.96-9.15); NEUTROPHILS PERCENT AUTO 62 % (41-73); Platelet Count 309 K/mm3 (150-400); RDW Coefficient Variation 14.9 % (11.7-14.2); RDW Standard Deviation 49.8 fL (35.1-46.3); Red Blood Cell Count 4.01 M/mm3 (3.80-5.20); White Blood Cell Count 10.51 K/mm3 (4.00-11.30)
[2021-05-16 00:29] LABS: Alanine Aminotransfer (ALT/SGP 64 U/L (12-78); Albumin, Blood 3.3 g/dL (3.4-5.0); Albumin/Globulin Ratio 0.9 (0.8-1.8); Alk Phos 152 U/L (50-136); Anion Gap 7 mmol/L (6-16); Aspartate Aminotrans (AST/SGOT 57 U/L (12-37); Bilirubin, Total 0.6 mg/dL (0.1-1.0); Blood Urea Nitrogen 26 mg/dL (8-24); Bun/Creatinine Ratio 25.2 (12.0-20.0); CO2, Blood 25 mmol/L (21-32); Chloride, Blood 108 mmol/L (98-108); Creatinine, Blood 1.03 mg/dL (0.40-1.00); Globulin, Blood 3.5 g/dL (2.2-4.0); Glomerular Filtration Rate 50 (60-); Glucose, Blood 137 mg/dL (70-99); Potassium, Blood 3.8 mmol/L (3.5-5.5); Sodium, Blood 140 mmol/L (136-145); Total Protein, Blood 6.8 g/dL (6.4-8.2); Troponin I 0.113 ng/mL (0.000-0.040)
[2021-05-16 02:02] LABS: SARS-Cov-2 (COVID-19) PCR, MMC NEGATIVE (NEGATIVE)
[2021-05-16 02:04] LABS: CHOL/HDL RATIO 4.6; Cholesterol 182 mg/dL (50-200); HDL Cholesterol 40 mg/dL (>39); LDL/HDL RATIO 2.8; Low Density Lipoprotein Chol 114 mg/dL (0-110); Triglycerides 142 mg/dL (30-160); Very Low Density Lipoprot Chol 28 mg/dL (6-32)
[2021-05-16 03:41] LABS: Albumin, Blood 3.2 g/dL (3.4-5.0); Albumin/Globulin Ratio 0.9 (0.8-1.8); Bilirubin, Total 0.5 mg/dL (0.1-1.0); Bun/Creatinine Ratio 25.2 (12.0-20.0); Creatinine, Blood 0.99 mg/dL (0.40-1.00); Globulin, Blood 3.5 g/dL (2.2-4.0); Potassium, Blood 4.3 mmol/L (3.5-5.5); Total Protein, Blood 6.7 g/dL (6.4-8.2)
[2021-05-16 04:37] LABS: BASOPHILS ABSOLUTE AUTO 0.05 K/mm3 (0.00-0.23); BASOPHILS PERCENT AUTO 1 % (0-2); EOSINOPHILS ABSOLUTE AUTO 0.06 K/mm3 (0.00-0.68); EOSINOPHILS PERCENT AUTO 1 % (0-6); Hematocrit 37.2 % (33.0-51.0); Hemoglobin 11.7 g/dL (11.5-16.0); IMMATURE GRAN ABSOLUTE AUTO 0.04 K/mm3 (0.00-0.10); IMMATURE GRAN PERCENT AUTO 0 % (0-1); LYMPHOCYTES PERCENT AUTO 17 % (21-46); MONOCYTES ABSOLUTE AUTO 0.71 K/mm3 (0.16-1.47); MONOCYTES PERCENT AUTO 8 % (4-13); Mean Corpuscular HGB 29.1 pg (26.0-34.0); Mean Corpuscular HGB Conc 31.5 g/dL (31.5-36.5); Mean Corpuscular Volume 93 fL (80-100); Mean Platelet Volume 10.4 fL (9.1-12.4); NEUTROPHILS ABSOLUTE AUTO 6.88 K/mm3 (1.96-9.15); NEUTROPHILS PERCENT AUTO 74 % (41-73); Platelet Count 243 K/mm3 (150-400); RDW Coefficient Variation 15.1 % (11.7-14.2); RDW Standard Deviation 51.2 fL (35.1-46.3); Red Blood Cell Count 4.02 M/mm3 (3.80-5.20); White Blood Cell Count 9.34 K/mm3 (4.00-11.30)
[2021-05-16 05:06] LABS: International Normalized Ratio 1.07; Prothrombin Time Results 11.5 Sec (9.7-11.5)
[2021-05-16 07:29] LABS: Source, Urine Catheter
[2021-05-16 07:33] LABS: Appearance, Urine Hazy (Clear); Bilirubin, Urine Neg (Neg); Blood, Urine 4+ (Neg); Color, Urine Yellow (P-Yellow); Glucose Qualitative, Urine Neg (Neg); Ketones, Urine Neg (Neg); Leukocyte Esterase, Urine 3+ (Neg); Nitrite, Urine Neg (Neg); Protein, Urine 2+ (Neg); Specific Gravity, Urine 1.015 (1.003-1.022); Urobilinogen, Urine NORM (Normal)
[2021-05-16 07:39] LABS: White Blood Cells, Urine TNTC /hpf (0-5)
[2021-05-16 07:41] LABS: Bacteria Rare /hpf; Squamous Epithelial Cells Few /hpf (Few)
[2021-05-16] MEDS ORDERED: OXYC5 PO (09:46)
[2021-05-16] MEDS ORDERED: DOCU100 PO (09:46)
[2021-05-16] MEDS ORDERED: DULCOLAX400 MG/5 M PO (09:47)
[2021-05-16] MEDS ORDERED: FLUO10 PO (09:47)
[2021-05-16 13:33] LABS: Troponin I 0.105 ng/mL (0.000-0.040)
[2021-05-17 04:31] LABS: BASOPHILS ABSOLUTE AUTO 0.05 K/mm3 (0.00-0.23); BASOPHILS PERCENT AUTO 1 % (0-2); EOSINOPHILS ABSOLUTE AUTO 0.19 K/mm3 (0.00-0.68); EOSINOPHILS PERCENT AUTO 2 % (0-6); Hematocrit 37.2 % (33.0-51.0); Hemoglobin 11.4 g/dL (11.5-16.0); IMMATURE GRAN ABSOLUTE AUTO 0.02 K/mm3 (0.00-0.10); IMMATURE GRAN PERCENT AUTO 0 % (0-1); LYMPHOCYTES ABSOLUTE AUTO 1.47 K/mm3 (0.84-5.20); LYMPHOCYTES PERCENT AUTO 18 % (21-46); MONOCYTES ABSOLUTE AUTO 0.98 K/mm3 (0.16-1.47); MONOCYTES PERCENT AUTO 12 % (4-13); Mean Corpuscular HGB 29.1 pg (26.0-34.0); Mean Corpuscular HGB Conc 30.6 g/dL (31.5-36.5); Mean Corpuscular Volume 95 fL (80-100); Mean Platelet Volume 10.6 fL (9.1-12.4); NEUTROPHILS ABSOLUTE AUTO 5.46 K/mm3 (1.96-9.15); NEUTROPHILS PERCENT AUTO 67 % (41-73); Platelet Count 211 K/mm3 (150-400); RDW Coefficient Variation 15.5 % (11.7-14.2); RDW Standard Deviation 53.4 fL (35.1-46.3); Red Blood Cell Count 3.92 M/mm3 (3.80-5.20); White Blood Cell Count 8.17 K/mm3 (4.00-11.30)
[2021-05-17 04:54] LABS: Albumin, Blood 3.1 g/dL (3.4-5.0); Anion Gap 6 mmol/L (6-16); Blood Urea Nitrogen 20 mg/dL (8-24); Bun/Creatinine Ratio 17.9 (12.0-20.0); CO2, Blood 24 mmol/L (21-32); Calcium, Blood 8.7 mg/dL (8.5-10.1); Chloride, Blood 111 mmol/L (98-108); Creatinine, Blood 1.12 mg/dL (0.40-1.00); Glomerular Filtration Rate 46 (60-); Glucose, Blood 106 mg/dL (70-99); Phosphorus, Blood 4.1 mg/dL (2.5-4.9); Potassium, Blood 4.2 mmol/L (3.5-5.5); Sodium, Blood 141 mmol/L (136-145)
[2021-05-18 05:16] LABS: Albumin, Blood 2.9 g/dL (3.4-5.0); Anion Gap 5 mmol/L (6-16); Blood Urea Nitrogen 21 mg/dL (8-24); Bun/Creatinine Ratio 17.6 (12.0-20.0); CO2, Blood 27 mmol/L (21-32); Calcium, Blood 8.8 mg/dL (8.5-10.1); Chloride, Blood 108 mmol/L (98-108); Creatinine, Blood 1.19 mg/dL (0.40-1.00); Glomerular Filtration Rate 43 (60-); Glucose, Blood 124 mg/dL (70-99); Phosphorus, Blood 3.6 mg/dL (2.5-4.9); Potassium, Blood 4.3 mmol/L (3.5-5.5); Sodium, Blood 140 mmol/L (136-145)
[2021-05-19 05:28] LABS: Albumin, Blood 2.9 g/dL (3.4-5.0); Anion Gap 2 mmol/L (6-16); Blood Urea Nitrogen 31 mg/dL (8-24); CO2, Blood 31 mmol/L (21-32); Calcium, Blood 8.9 mg/dL (8.5-10.1); Chloride, Blood 107 mmol/L (98-108); Creatinine, Blood 1.24 mg/dL (0.40-1.00); Glomerular Filtration Rate 41 (60-); Glucose, Blood 152 mg/dL (70-99); Phosphorus, Blood 3.3 mg/dL (2.5-4.9); Potassium, Blood 4.1 mmol/L (3.5-5.5); Sodium, Blood 140 mmol/L (136-145); Triiodothyronine, Free 1.24 pg/mL (2.18-3.98)
[2021-05-20 05:11] LABS: Hematocrit 33.5 % (33.0-51.0); Hemoglobin 10.4 g/dL (11.5-16.0); Mean Corpuscular Volume 93 fL (80-100); Platelet Count 202 K/mm3 (150-400); RDW Coefficient Variation 15.8 % (11.7-14.2); RDW Standard Deviation 53.3 fL (35.1-46.3); Red Blood Cell Count 3.59 M/mm3 (3.80-5.20)
[2021-05-20 05:44] LABS: Albumin, Blood 2.8 g/dL (3.4-5.0); Anion Gap 4 mmol/L (6-16); Blood Urea Nitrogen 30 mg/dL (8-24); CO2, Blood 28 mmol/L (21-32); Calcium, Blood 9.3 mg/dL (8.5-10.1); Chloride, Blood 108 mmol/L (98-108); Creatinine, Blood 1.11 mg/dL (0.40-1.00); Glomerular Filtration Rate 46 (60-); Glucose, Blood 122 mg/dL (70-99); Phosphorus, Blood 3.3 mg/dL (2.5-4.9); Potassium, Blood 4.4 mmol/L (3.5-5.5); Sodium, Blood 140 mmol/L (136-145)
[2021-05-20] MEDS ORDERED: ASPI81CH PO (12:36)
[2021-05-20] MEDS ORDERED: ALPR.25 PO (12:37)
[2021-05-20] MEDS ORDERED: ATOR80 PO (12:37)
[2021-05-20] MEDS ORDERED: Isosorbide Mono30 MG PO (12:38)
[2021-05-20] MEDS ORDERED: CLOP75 PO (12:38)
[2021-05-20] MEDS ORDERED: Lisinopril2.5 MG PO (12:39)
[2021-05-20] MEDS ORDERED: LEVFLO500 PO (12:39)
[2021-05-20] MEDS ORDERED: METO25ER PO (12:42)
[2021-05-20] MEDS ORDERED: Aldactone25 MG PO (12:42)
[2021-05-20] MEDS ORDERED: PROBIOTIC1 EA13 PO (12:43)
[2021-05-21 05:49] LABS: Albumin, Blood 2.6 g/dL (3.4-5.0); Anion Gap 3 mmol/L (6-16); Blood Urea Nitrogen 32 mg/dL (8-24); Bun/Creatinine Ratio 26.2 (12.0-20.0); CO2, Blood 32 mmol/L (21-32); Chloride, Blood 107 mmol/L (98-108); Creatinine, Blood 1.22 mg/dL (0.40-1.00); Glomerular Filtration Rate 41 (60-); Glucose, Blood 100 mg/dL (70-99); Phosphorus, Blood 3.5 mg/dL (2.5-4.9); Potassium, Blood 4.4 mmol/L (3.5-5.5); Sodium, Blood 142 mmol/L (136-145)
== END 2021-05-21 12:40 | disposition hospice, home (50) | DRG 280 ==
LOC: ER 23:47 → MEDS 23:48 → ER 05-16 02:16 → MEDS 05-16 02:16 → ENPENDDIS 05-20 12:02 → MEDS 05-21 12:40
PROVIDERS: Emergency Medicine; Internal Medicine; ADMIT Hospitalist
DX: I21.4 Non-ST elevation (NSTEMI) myocardial infarction (principal); I50.21 Acute systolic (congestive) heart failure; I13.0 Hypertensive heart and chronic kidney disease with heart failure and stage 1 through stage 4 chronic kidney disease, or unspecified chronic kidney disease; N39.0 Urinary tract infection, site not specified; E89.0 Postprocedural hypothyroidism; Z66 Do not resuscitate; G89.29 Other chronic pain; N18.30 Chronic kidney disease, stage 3 unspecified; J44.9 Chronic obstructive pulmonary disease, unspecified; F32.9 Major depressive disorder, single episode, unspecified; Z20.822 Contact with and (suspected) exposure to COVID-19; F41.9 Anxiety disorder, unspecified; I25.5 Ischemic cardiomyopathy; K59.00 Constipation, unspecified; I27.20 Pulmonary hypertension, unspecified; B96.5 Pseudomonas (aeruginosa) (mallei) (pseudomallei) as the cause of diseases classified elsewhere; F01.50 Vascular dementia, unspecified severity, without behavioral disturbance, psychotic disturbance, mood disturbance, and anxiety; E07.81 Sick-euthyroid syndrome; I08.3 Combined rheumatic disorders of mitral, aortic and tricuspid valves; I69.321 Dysphasia following cerebral infarction; Z98.890 Other specified postprocedural states; Z90.49 Acquired absence of other specified parts of digestive tract; Z90.710 Acquired absence of both cervix and uterus; Z87.442 Personal history of urinary calculi; Z95.2 Presence of prosthetic heart valve; Z98.49 Cataract extraction status, unspecified eye; I69.320 Aphasia following cerebral infarction; Z87.440 Personal history of urinary (tract) infections
CPT/HCPCS: 36415; 71045; 71260; 74176; 80053; 80061; 80069; 81001; 82550; 82947; 83690; 83880; 84439; 84443; 84481; 84484; 85025; 85027; 85379; 85610; 85730; 86850; 86900; 86901; 87077; 87086; 87186; 92526; 92610; 93005; 93010; 93306; 94762; 96372; 96374; 96375; 96376; 97163; 97166; 99285-25; A9270; C9113; G0378; J1644; J1940; J2405; J2543; J3010; J7040; Q9967; U0004